=== PATIENT | female | born 1990 ===

== ENCOUNTER 2021-09-13 22:20 | Emergency (ER) | payer SELFPAY ==
[2021-09-14] MEDS ORDERED: Acetaminophen 500 MG TAB ONE (00:28)
[2021-09-14] MEDS ORDERED: Ondansetron ODT 4 MG TAB ONE (00:32)
[2021-09-14 00:49] LABS: Bilirubin Negative (Negative); Blood, Urine 1+ (Negative); Clarity Turbid (Clear); Glucose, Urine (Dipstick) Normal (Negative); Ketone, Urine Negative (Negative); Leukocyte 500 Leu/uL (Negative); Nitrite Negative (Negative); Protein, Urine (Dipstick) Negative (Neg-Trace); Specific Gravity, Urine 1.017 (1.002-1.036); Urobilinogen Normal mg/dL (Less than 2); pH, Urine 5.5 (5.0-9.0)
[2021-09-14 01:00] LABS: WBC/HPF 21-50 HPF (0-3)
[2021-09-14 01:01] LABS: Bacteria/HPF 2+ HPF (None Seen); Squamous Epithelial 0-3 HPF (0-3)
[2021-09-14 02:21] LABS: Pregnancy Test - Urine (BHCG) Negative (Negative); Pregu Control Background? CLEAR/WHITE (CLR/WHITE); Pregu Control Bar Appear? YES (CONTROL BAR); Specific Gravity 1.017 (1.002-1.036)
== END 2021-09-14 04:28 | disposition home or self-care (01) ==
LOC: ERS 22:20
DX: N10 Acute pyelonephritis (principal)
CPT/HCPCS: 74176; 81003; 81015; 81025; Q0162